=== PATIENT | female | born 1995 | race Caucasian/White ===

== ENCOUNTER 2017-05-12 11:47 | Emergency (ER) | payer OTHER ==
[~2017-05-12] VITALS: Ht 157.5 cm; Wt 57.6 kg
[2017-05-12 11:52] VITALS: BP_SYST 111
[2017-05-12 13:22] VITALS: BP_SYST 115
== END 2017-05-12 13:22 | disposition home or self-care (01) ==
LOC: SED 11:47
DX: S62.390A Other fracture of second metacarpal bone, right hand, initial encounter for closed fracture (principal); V00.131A Fall from skateboard, initial encounter; Y93.51 Activity, roller skating (inline) and skateboarding; Y92.89 Other specified places as the place of occurrence of the external cause; Y99.8 Other external cause status
CPT/HCPCS: 81025; 99284